=== PATIENT | female | born 1980 | race Two or more races ===

== ENCOUNTER 2024-07-13 23:31 | Emergency (ER) | payer OTHER, SELFPAY ==
[2024-07-14] VITALS: BP 167/96; PULSE 115; RESP 18; TEMP 36.8; O2SAT 96; BMI 31.1
--- NOTE | 2024-07-14 00:05 | PD.EDRME ---
Rapid Medical Screening Exam [facility] Arrival date/time: 07/13/24 23:31 43F with no significant PMH presents to ED with several days of worsening R pelvic pain and redness on skin. Chief Complaint: Skin/Abscess/Foreign Body Vital signs: Vital Signs Temperature 98.3 F 07/14/24 00:00 Pulse Rate 115 H 07/14/24 00:00 Respiratory Rate 18 07/14/24 00:00 Blood Pressure 167/96 H 07/14/24 00:00 Pulse Oximetry (%) 96 07/14/24 00:00 Oxygen Delivery Method Room Air 07/14/24 00:00
--- NOTE | 2024-07-14 02:09 | PD.EDSKIN ---
ED Skin Abcess FB-RME/HPI General Chief complaint: Skin/Abscess/Foreign Body Stated complaint: Has Skin Infection needs a shot Arrival date/time: 07/13/24 23:31 RME / HPI RME / HPI narrative: 07/13/24 23:31 43F with no significant PMH presents to ED with several days of worsening R pelvic pain and redness on skin. --------- Dr. Alejandra?s Main ED Evaluation: 43yo female presents to the ED for a chief complaint of right groin pain and redness. Patient states she started having right groin pain and redness 3-4 days ago, reporting it started to get hard. She states she tried to pop the area yesterday, reporting it had some drainage, but has continued to get worse, so she came in for evaluation. She denies any fever, chills or any other associated symptoms. No known allergies. Related Data Home Medications ?Medication ?Instructions ?Recorded ?Confirmed cetirizine 5 mg-pseudoephedrine ER 1 tab PO DAILY 01/17/22 01/20/22 120 mg tablet,extended release,12hr (Zyrtec-D) metronidazole 500 mg tablet 500 mg PO BID 01/17/22 01/20/22 omeprazole 20 mg tablet,delayed 20 mg PO QDAY 01/17/22 01/20/22 release Previous Rx's ?Medication ?Instructions ?Recorded doxycycline monohydrate 100 mg 100 mg PO BID 10 days #20 caps 07/14/24 capsule hydrocodone 5 mg-acetaminophen 325 1 tab PO Q4H PRN pain #14 tabs 07/14/24 mg tablet ibuprofen 600 mg tablet 600 mg PO Q6H PRN pain #20 tabs 07/14/24 Allergies Allergy/AdvReac Type Severity Reaction Status Date / Time No Known Allergies Allergy Verified 01/20/22 11:24 Review of Systems Review of Systems Systems Reviewed: All systems reviewed, normal except as documented Past Medical History Past Medical History NEUROLOGIC: Negative Neurological Disorders or Seizures CARDIAC: Positive Hypercholesterolemia; Negative Cardiac Disorders, Congestive Heart Failure, Edema, Cellulitis or Varicose Veins RESPIRATORY: Positive Asthma (HX YOUNG AGE); Negative Chronic Obstructive Pulmonary Disease (COPD), Tuberculosis or Sleep Apnea GASTROINTESTINAL: Positive Gastrointestinal Disorders and Gastroesophageal Reflux Disease (HEARTBURN OTC MED); Negative Hepatitis GENITOURINARY: Positive Genitourinary Disorders (CYST DIVERTICULUM); Negative Renal Disease REPRODUCTIVE: Positive Previous Pregnancies (X3) MUSCULOSKELETAL: Positive Musculoskeletal Disorders ENDOCRINE: Negative Endocrine Disorders, Diabetes Mellitus Type 1 or Diabetes Mellitus Type 2 HEMATOLOGIC: Negative Blood Disorders, Anemia or Clotting Problems OTHER HISTORY: Positive MRSA (MRSA NASAL 2009 HOSP) and Chicken Pox; Negative Hospitalization, Autoimmune Disease, Shingles, Falls, Blood Transfusions, Blood Transfusion Reaction, Anesthesia Reactions, Chemotherapy, Radiation Therapy, Measles, Mumps or Cancer Family History FAMILY HISTORY: Positive Family Psychiatric Problems (MOTHER (DEPRESSION)), Family Respiratory Disorders (SISTER (ASTHMA)), Family Cardiac Disorders (FATHER (CVA),FATHER,MOTHER,SISTER (HTN)) and Family Surgery (MOTHER,SISTER); Negative Family Gastrointestinal Problems, Family Cancer or Family Anesthesia Reaction Surgical History SURGICAL: Negative Pacemaker Social History SMOKING STATUS: Never smoker SECOND HAND EXPOSURE: No ED Exam Narrative Physical exam: GENERAL APPEARANCE: alert and oriented x 4, well-developed, well-nourished, no acute distress VITALS: All vitals were reviewed and the pulse ox is 96% on room air, which is normal according to my interpretation. 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 There's a large area of swelling to the right mons with erythema, tenderness, and is hot to touch, but no fluctuance. There is an area of healing open wound in the middle of the area of swelling without any active drainage. EXTREMITIES: atraumatic; no edema NEUROLOGIC: awake; alert and oriented x4; cranial nerves II-XII grossly intact; no focal sensory or motor deficits PSYCHIATRIC: appropriate mood and affect SKIN: warm, dry, normal color; no rashes Course Quality Measures none Orders Category Date Time Status Incision and Drainage Set Up X1 Care 07/14/24 00:05 Completed US extremity nonvascular LMTD Stat Exams 07/14/24 02:22 Taken Chlamydia/GC/TV - PCR Stat Lab 07/14/24 Ordered Syphilis Stat Lab 07/14/24 02:59 Completed Acetaminophen Tab [Tylenol Tab] Med 07/14/24 02:10 Discontinued 650 mg PO X1 ONE Doxycycline [Vibramycin] Med 07/14/24 02:20 Discontinued 100 mg PO X1 ONE HYDROcodone*/APAP 5/325 [[place] 5/325] Med 07/14/24 02:10 Discontinued 1 tab PO X1 ONE Ketorolac Inj [Toradol Inj] Med 07/14/24 02:10 Discontinued 30 mg IM X1 ONE Tet,Diphth,Pertuss(Acell)-Tdap [Boostrix Vacc] Med 07/14/24 02:24 Discontinued 0.5 ml IMI .ONCE ONE Vital Signs Vital signs: Vital Signs Temperature 98.3 F 07/14/24 00:00 Pulse Rate 115 H 07/14/24 00:00 Respiratory Rate 18 07/14/24 00:00 Blood Pressure 167/96 H 07/14/24 00:00 Pulse Oximetry (%) 96 07/14/24 00:00 Oxygen Delivery Method Room Air 07/14/24 00:00 Procedures -ED Abscess I/D Site: other (right mons) Local Anesthetic: lidocaine 1% Amount of anesthesia used (mL): 5 Technique: incised with #11 blade Amount of fluid expressed (mL): 3 Irrigation: No Packing used?: none Skin / Abscess / Foreign Body MDM Narrative MDM Narrative:: Scribe Attestation: 07/14/24 Cortney Suh am scribing for and in the presence of Dr. Alejandra. Patient data External records reviewed:: [facility] previous records (Per chart review, patient has no relevant previous ED visits.) Clinical information provided by:: patient Social determinants that could affect healthcare access:: none Patient has the following chronic illnesses:: HLD How is presenting disease/condition affected by chronic disease/condition?: uneffected by Evaluation data The following diagnostics were reviewed and interpreted by me:: lab results and radiology exam(s) Lab and/or radiology exams considered but not ordered:: none Interpretation Summary: Telerad Preliminary Report Draft Patient: MIKE STERLING Med. Record#: [id number] Birthdate: 1980 Age/Sex: 43 / F Location: [facility] Attending Dr: Ordering Physician: Date of Service: Procedure(s): Accession Number(s): cc: ~ Bilateral lower extremity ultrasound with Doppler. July 14, 2024 at 0241 hours Clinical history: Cellulitis to the mons veins. Please rule out collection. Comparison: No prior study is available for comparison. Findings: Edema. Complex heterogenous area measuring 2.9 x 2.4 x 2.8 cm. Impression: Complex heterogenous area, differential diagnosis includes mass and abscess. Correlation with MRI and/or CT with contrast is recommended. Report Electronically Signed By: Jt Amado 07/14/2024 3:25:24 AM Medications / Prescriptions Medications or Prescriptions considered but not ordered:: none Medication administrations:: Medication Administration History Discontinued Medications Acetaminophen (Acetaminophen 325 Mg Tablet) 650 mg PO X1 ONE Stop: 07/14/24 02:11 Last Admin: 07/14/24 02:49 Dose: 650 mg Documented By: KULWANT Hydrocodone Bitart/Acetaminophen (Hydrocodone/Apap 5/325 Tablet) 1 tab PO X1 ONE Stop: 07/14/24 02:11 Last Admin: 07/14/24 03:09 Dose: Not Given Documented By: EF Non-Admin Reason: Patient Refused Diphtheria/Tetanus/Acell Pertussis (Diphth,Pertuss(Acell),Tet Vac 0.5 Ml Syr) 0.5 ml IMi .ONCE ONE Stop: 07/14/24 02:25 Last Admin: 07/14/24 02:49 Dose: 0.5 ml Documented By: KULWANT Doxycycline Hyclate (Doxycycline 100 Mg Tablet) 100 mg PO X1 ONE Stop: 07/14/24 02:21 Last Admin: 07/14/24 02:50 Dose: 100 mg Documented By: KULWANT Ketorolac Tromethamine (Ketorolac Inj 60 Mg/2 Ml Vial) 30 mg IM X1 ONE Stop: 07/14/24 02:11 Last Admin: 07/14/24 02:48 Dose: 30 mg Documented By: KULWANT see above Consultations Consultation(s) initiated? (list below): No Diagnosis Skin/Abscess Differential Diagnosis: cellulitis and other (abscess, syphilis lesion, lymphadenopathy) Most likely diagnosis given after review of the tests above:: see below Admission Indicated Admission indicated?: not indicated Admission Request Was there a request for admission?: No Disposition Plan Disposition Plan: Discharge Discharge Attestation Discharge Attestation: The patient and all family members were given an opportunity to ask questions and understood the discharge instructions. Discharge instructions specifically effects, indications for sooner follow up or return to the emergency department, and the expected course of current diagnosis. Patient condition: Stable Discharge Plan Plan Patient Disposition: HOME (Self Care) Disposition Comment: Stable for discharge home Patient condition on transfer: Stable Prescriptions/Referrals Prescriptions/Med Rec: New hydrocodone-acetaminophen 5-325 mg tablet 1 tab PO Q4H MDD 6 tabs PRN (Reason: pain) Qty: 14 0RF doxycycline monohydrate 100 mg capsule 100 mg PO BID 10 Days Qty: 20 0RF ibuprofen 600 mg tablet 600 mg PO Q6H PRN (Reason: pain) Qty: 20 0RF No Action cetirizine-pseudoephedrine [Zyrtec-D] 5-120 mg Tablet Extended Release 12 Hr 1 tab PO DAILY metronidazole 500 mg Tablet 500 mg PO BID omeprazole 20 mg Tablet,Delayed Release (Dr/Ec) 20 mg PO QDAY Referrals: [facility] [Outside] - In 1 week Problem List Clinical Impression: Cutaneous abscess Patient/Caregiver Discharge Instructions Discharge Activity: activity as tolerated Education Materials: Abscess Drainage, ED Abscess, Incision And Drainage, ED Cellulitis Additional Instructions: Please return to the emergency department if you are worsening in any way or if you are not improving within the next 48 hours. Otherwise you should follow-up with your primary care doctor within the next several days. You should use hot compresses to the infected area. You should take a washcloth and use hot water as hot as you can stand it. Then place this on the skin above the infected area. You should do this at least 6 times per day. You should also take the antibiotics that are waiting for you at your pharmacy. Your antibiotic is called doxycycline. You should take that twice per day until they are completely gone even if you are feeling better before that. You will have pain medications at your pharmacy as well. One of them is ibuprofen 600 mg. You should take this every 6 hours at least for the next 3 days. The other pain medicine is called hydrocodone. It has Tylenol in it as well. You can take these up to 6 times [address] after taking the hydrocodone. Print Language: Malian Stand Alone Forms: [employer] Info., Patient Portal Info Letter
--- NOTE | 2024-07-14 02:22 | XR_ITS ---
Examination: Soft tissue right pelvic extremity Technique: Grayscale sonographic images soft tissue right lower pelvis Exam date and time: July 14, 2024 0241 hrs. Indications: Right lower pelvic wall mass today with severe pain Findings: Soft tissue mass with surrounding edema, 2.9 x 2.4 x 2.8 cm most consistent with abscess Impression: Soft tissue mass at the area concern 2.9 x 2.4 x 2.8 cm most consistent with abscess Recommend CT scan pelvis post intravenous contrast follow-up
[2024-07-14] MEDS: KETOROLAC INJ 60 MG/2 ML VIAL 30 MG IM (02:48)
[2024-07-14] MEDS: ACETAMINOPHEN 325 MG TABLET 650 MG PO (02:49)
[2024-07-14] MEDS: DIPHTH,PERTUSS(ACELL),TET VAC 0.5 ML SYR IMi (02:49)
[2024-07-14] MEDS: DOXYCYCLINE 100 MG TABLET PO (02:50)
--- NOTE | 2024-07-14 03:26 | PRELIM_ITS ---
Bilateral lower extremity ultrasound with Doppler. July 14, 2024 at 0241 hours Clinical history: Cellulitis to the mons veins. Please rule out collection. Comparison: No prior study is available for comparison. Findings: Edema. Complex heterogenous area measuring 2.9 x 2.4 x 2.8 cm. Impression: Complex heterogenous area, differential diagnosis includes mass and abscess. Correlation with MRI and/or CT with contrast is recommended. Report Electronically Signed By: Jt Amado 07/14/2024 3:25:24 AM [EST]
[2024-07-14 03:59] VITALS: BP 146/74; PULSE 85; RESP 19; TEMP 36.6; O2SAT 97
[2024-07-14 04:00] LABS: Syphilis Nonreactive (Nonreactive)
== END 2024-07-14 04:10 | disposition home or self-care (01) ==
PROVIDERS: Emergency Provider Emergency Medicine; PCP Family Medicine
DX: L02.215 Cutaneous abscess of perineum (principal); Z23 Encounter for immunization
CPT/HCPCS: 10060; 36415; 76882; 86780; 87491; 87591; 87661; 90471; 90715; 96372; 99284; J1885; A9270